=== PATIENT | male | born 1970 | race Caucasian/White ===

== ENCOUNTER 2023-02-03 22:25 | Inpatient (IN) | payer MEDICAID, OTHER ==
[~2023-02-03] VITALS: Ht 172.7 cm; Wt 104.8 kg
[2023-02-03 22:34] VITALS: O2SAT 100
[2023-02-03 23:57] LABS: HEMATOCRIT. 40.2 % (42.0-52.0); HEMOGLOBIN. 12.7 g/dL (14.0-18.0); MEAN CORPUSCULAR HEMOGLOBIN 29.4 pg (28.0-32.0); MEAN CORPUSCULAR HGB CONC 31.5 g/dL (31.0-37.0); MEAN CORPUSCULAR VOLUME 93.2 fL (80.0-94.0); MEAN PLATELET VOLUME 8.1 fl (7.4-10.4); PLATELET 262 x1000/uL (130-400); RED BLOOD CELL COUNT 4.31 mill/uL (4.7-6.1); WHITE BLOOD COUNT 10.5 x1000/uL (4.5-11.0)
[2023-02-04 00:11] LABS: CHLORIDE 102 mEq/L (98-107); INDEX HEMOLYSI 3 (1-3); INDEX ICTERIC 1 (1-4); INDEX LIPEMIC 1 (1-3); POTASSIUM 4.3 mEq/L (3.5-5.1); SODIUM 136 mEq/L (136-145)
[2023-02-04 00:21] LABS: ALANINE AMINOTRANSFERASE 26 IU/L (13-61); ALBUMIN 3.3 g/dL (3.4-5.0); ASPARTATE AMINOTRANSFERASE 31 IU/L (15-37); BILIRUBIN TOTAL 1.6 mg/dL (0.1-1.0); CALCIUM 8.6 mg/dL (8.5-10.1); CARBON DIOXIDE 29 mEq/L (21-32); CREATININE 1.8 mg/dL (0.6-1.3); GLUCOSE 75 mg/dL (70-105); PROTEIN TOTAL 7.6 g/dL (6.0-8.3); TROPONIN I HIGH SENSITIVITY 19 ng/L (<78); UREA NITROGEN BLOOD 46 mg/dL (7-21)
[2023-02-04 00:31] LABS: DIFFERENTIAL COMMENT 1
[2023-02-04 05:02] LABS: TROPONIN I HIGH SENSITIVITY 21 ng/L (<78)
[2023-02-04] MEDS ORDERED: FUROSEMIDE 40MG/4ML VIAL IVP ONE (06:15)
[2023-02-04] MEDS ORDERED: ENALAPRIL 2.5MG/2ML VIAL 2ML IV ONE (06:15)
[2023-02-04] MEDS ORDERED: ENALAPRIL 1.25MG/ML VIAL 1ML IV NR (07:00)
[2023-02-04 10:14] LABS: PLATELET ESTIMATE NORMAL
[2023-02-04 13:58] VITALS: BP 138/97; PULSE 93; RESP 16; TEMP 97.5
[2023-02-04] MEDS ORDERED: HYDROCODONE/ACETAMINOPHEN 5/325MG TABLET PO PRN (15:45)
[2023-02-04 16:00] VITALS: BP 159/80; PULSE 96; RESP 22; TEMP 97.5
[2023-02-04] MEDS ORDERED: NALOXONE HCL 0.4MG/ML VIAL IV PRN (16:15)
[2023-02-04] MEDS ORDERED: IPRATROPIUM/ALBUTEROL 0.5-3(2.5)MG/3ML NEB HHN PRN (16:15)
[2023-02-04] MEDS ORDERED: CARVEDILOL 3.125 MG TABLET PO SCH (17:00)
[2023-02-04 17:12] LABS: HEPATITIS B SURFACE ANTIGEN NEGATIVE
[2023-02-04 17:41] VITALS: PULSE 99
[2023-02-04 17:41] LABS: HEPATITIS C VIR.AB 0.15 INDEXVAL (0.00-0.80)
[2023-02-04] MEDS ORDERED: FUROSEMIDE 40MG/4ML VIAL IVP SCH (18:00)
[2023-02-04] MEDS ORDERED: ONDANSETRON HCL 4MG/2ML INJ IV PRN (19:00)
[2023-02-04 19:10] LABS: CLARITY URINE CLEAR (CLEAR); COLOR URINE YELLOW (YELLOW); GLUCOSE URINE NEGATIVE (NEGATIVE); KETONES URINE NEGATIVE (NEGATIVE); PROTEIN URINE 1+ (NEGATIVE); SPECIFIC GRAVITY URINE 1.015 (1.005-1.030)
[2023-02-04 19:11] LABS: LEUKOCYTE ESTERASE URINE NEGATIVE (NEGATIVE); NITRITE URINE NEGATIVE (NEGATIVE); OCCULT BLOOD URINE TRACE (NEGATIVE)
[2023-02-04 19:19] LABS: BACTERIA URINE NONE SEEN; RBC URINE 0-2 /hpf (0-2); WBC URINE NONE SEEN /hpf (0-2); YEAST URINE NONE SEEN
[2023-02-04 19:20] LABS: SQUAMOUS EPITHELIAL CELL URINE NONE SEEN /lpf (RARE/1+)
[2023-02-05] MEDS ORDERED: LOSARTAN POTASSIUM 50 MG TABLET PO SCH (09:00)
[2023-02-05] MEDS ORDERED: ASPIRIN 81MG TABLET PO SCH (09:00)
== END 2023-02-04 20:00 | disposition left against medical advice (07) | DRG 194 ==
LOC: ER 22:25 → EDBEDREQ 02-04 10:29 → ENRESERV 02-04 12:22 → 3WST 02-04 13:21
PROVIDERS: ADMIT Internal Medicine; ATTEND Internal Medicine
DX: I11.0 Hypertensive heart disease with heart failure (principal); N17.1 Acute kidney failure with acute cortical necrosis; E44.1 Mild protein-calorie malnutrition; M94.0 Chondrocostal junction syndrome [Tietze]; I50.43 Acute on chronic combined systolic (congestive) and diastolic (congestive) heart failure; Z20.822 Contact with and (suspected) exposure to COVID-19; Z53.29 Procedure and treatment not carried out because of patient's decision for other reasons; I48.91 Unspecified atrial fibrillation; D64.9 Anemia, unspecified
CPT/HCPCS: 36415; 71045; 80053; 81003; 83880; 84484; 85025; 86803; 87340; 87426; 93005; 93880; 99285; J1940; J2405; J3490

== ENCOUNTER 2023-02-04 20:48 | Emergency (ER) | payer OTHER ==
[~2023-02-04] VITALS: Ht 175.3 cm; Wt 87.0 kg
[2023-02-04 20:51] VITALS: O2SAT 98
[2023-02-04] MEDS ORDERED: IBUPROFEN 600MG TABLET PO STA (21:41)
[2023-02-04] MEDS ORDERED: ACETAMINOPHEN 325MG TABLET PO STA (21:41)
[2023-02-04] MEDS ORDERED: ACETAMINOPHEN 325MG TABLET PO NR (23:30)
[2023-02-04] MEDS ORDERED: IBUPROFEN 600MG TABLET PO NR (23:30)
[2023-02-05 00:34] LABS: BASOPHILS % 0.7 % (0.0-2.0); EOSINOPHILS % 1.8 % (0.0-5.0); HEMATOCRIT. 37.5 % (42.0-52.0); LYMPHOCYTES % 16.7 % (20.0-50.0); MEAN CORPUSCULAR HEMOGLOBIN 29.3 pg (28.0-32.0); MEAN CORPUSCULAR HGB CONC 32.1 g/dL (31.0-37.0); MEAN CORPUSCULAR VOLUME 91.3 fL (80.0-94.0); MEAN PLATELET VOLUME 8.1 fl (7.4-10.4); MONOCYTES % 10.5 % (2.0-8.0); NEUTROPHILS % 70.3 % (40.0-76.0); PLATELET 272 x1000/uL (130-400); RED BLOOD CELL COUNT 4.11 mill/uL (4.7-6.1); RED CELL DISTRIBUTION WIDTH 19.7 % (11.6-14.6); WHITE BLOOD COUNT 9.6 x1000/uL (4.5-11.0)
[2023-02-05 00:41] LABS: CHLORIDE 98 mEq/L (98-107); INDEX HEMOLYSI 1 (1-3); INDEX ICTERIC 1 (1-4); INDEX LIPEMIC 1 (1-3); SODIUM 137 mEq/L (136-145)
[2023-02-05 00:51] LABS: ALANINE AMINOTRANSFERASE 24 IU/L (13-61); ALBUMIN 3.4 g/dL (3.4-5.0); ASPARTATE AMINOTRANSFERASE 28 IU/L (15-37); BILIRUBIN TOTAL 1.6 mg/dL (0.1-1.0); CALCIUM 9.3 mg/dL (8.5-10.1); CARBON DIOXIDE 32 mEq/L (21-32); CREATININE 1.7 mg/dL (0.6-1.3); GLUCOSE 88 mg/dL (70-105); NT PRO B-TYPE NATRIURETIC PEP 6537 pg/mL (5-125); PROTEIN TOTAL 7.2 g/dL (6.0-8.3); TROPONIN I HIGH SENSITIVITY 21 ng/L (<78); UREA NITROGEN BLOOD 42 mg/dL (7-21)
[2023-02-05] MEDS ORDERED: FUROSEMIDE 40MG/4ML VIAL IVP ONE (02:00)
[2023-02-05 02:08] LABS: TROPONIN I HIGH SENSITIVITY 20 ng/L (<78)
[2023-02-05 04:01] VITALS: BP 125/72; PULSE 90; RESP 18; TEMP 98.4
== END 2023-02-05 04:40 | disposition left against medical advice (07) ==
LOC: ER 20:48
DX: R07.89 Other chest pain (principal); I48.91 Unspecified atrial fibrillation; I11.0 Hypertensive heart disease with heart failure; I50.9 Heart failure, unspecified
CPT/HCPCS: 36415; 71045; 99285; 80053; 83880; 85025; 84484; Z7610 ×2; J1940